=== PATIENT | male | born 1990 | race African-American/Black ===

== ENCOUNTER 2020-04-08 13:57 | Emergency (ER) | payer SELFPAY ==
[2020-04-08 13:35] VITALS: BP 110/73; PULSE 73; RESP 16; O2SAT 98
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
[2020-04-08 13:58] VITALS: BMI 19.2
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
[2020-04-08 14:02] VITALS: BP 118/72; PULSE 89; O2SAT 97
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
[2020-04-08 14:39] LABS: Basophils % 0.8 % (0.1-2.0); Eosinophils # 0.1 K/mm3 (0.0-0.4); Eosinophils % 2.4 % (0.1-12.0); Hematocrit 45.5 % (42.0-52.0); Hemoglobin 14.2 g/dL (14.1-18.0); Lymphocytes # 2.4 K/mm3 (0.7-4.5); Lymphocytes % 41.9 % (10-50); Mean Corpuscular HGB Conc 31.3 g/dL (31.8-35.4); Mean Corpuscular Hemoglobin 25.1 pg (27.0-31.2); Mean Corpuscular Volume 80.1 fl (80-94); Mean Platelet Volume 6.6 fl (7.4-10.4); Monocytes # 0.3 K/mm3 (0.1-1.0); Monocytes % 4.5 % (1.7-9.3); Neutrophils # 2.8 K/mm3 (1.8-7.8); Neutrophils % 50.4 % (37.0-80.0); Platelet Count 313 K/mm3 (142-424); Red Blood Count 5.67 M/mm3 (4.60-6.20); Red Cell Distribution Width 13.2 % (11.5-17.5); White Blood Count 5.6 K/mm3 (4.8-10.8)
[2020-04-08 14:46] LABS: Alanine Aminotransferase 9 U/L (12-78); Albumin Level 4.3 g/dl (3.5-5.0); Albumin/Globulin Ratio 1.5 (1.1-1.8); Alkaline Phosphatase 64 U/L (38-126); Anion Gap 11.8 mEq/L (5-15); Aspartate Amino Transferase 22 U/L (17-59); Bilirubin,Total 0.5 mg/dl (0.2-1.3); Blood Urea Nitrogen 7 mg/dl (9-20); Calcium 9.1 mg/dl (8.4-10.2); Carbon Dioxide 28 mmol/L (22.0-30.0); Chloride 104 mmol/L (98-107); Creatinine Clearance Estimated 114 mL/min (50-200); Estimated Glomerular Filt Rate 114 ml/min (>60); GFR (African American) 138 ML/MIN (>60); Globulin 2.9 g/dL (1.3-3.2); Glucose 90 mg/dl (74-100); Potassium 3.8 mmoL/L (3.5-5.1); Sodium 140 mmol/L (136-145); Total Protein,Serum 7.2 g/dl (6.3-8.2)
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
--- NOTE | 2020-04-08 15:01 | PC.NURSE ---
pt back from ct
[2020-04-08 15:52] LABS: Microscopic, Urine URINE MICROSCOPIC (MICROSCOPIC)
[2020-04-08 15:53] LABS: Appearance,Urine CLEAR (Clear); Bilirubin,Urine Negative (Negative); Blood, Urine Negative (Negative); Color,Urine YELLOW (Yellow); Glucose,Urine (UA) Negative (Negative); Ketones,Urine Negative (Negative); Leukocyte Esterase,Urine Negative (Negative); Nitrate,Urine Negative (Negative); PH,Urine 7.5 (5.0-8.5); Protein,Urine Negative (Negative)
[2020-04-08 16:03] VITALS: BP 120/77; PULSE 72; O2SAT 98
[2020-04-08 16:30] VITALS: BP 125/77; PULSE 87; O2SAT 97
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
[2020-04-08 18:00] VITALS: BP 118/70; PULSE 74; RESP 16; TEMP 36.8; O2SAT 99
[2020-04-26 13:44] LABS: POC Glucose,Bedside 86 (70-110)
== END 2020-04-08 18:13 | disposition home or self-care (01) ==
PROVIDERS: Emergency Provider Emergency Medicine
DX: S76.012A Strain of muscle, fascia and tendon of left hip, initial encounter (principal); S39.011A Strain of muscle, fascia and tendon of abdomen, initial encounter; V43.62XA Car passenger injured in collision with other type car in traffic accident, initial encounter; Y92.488 Other paved roadways as the place of occurrence of the external cause
CPT/HCPCS: 71045; 72170; 73630; 73700; 74177; 80053; 81001; 82962; 85025; 96374; 96375; 99282; J2405; Q9967